=== PATIENT | female | born 1985 | race Caucasian/White ===

== ENCOUNTER 2024-07-12 09:11 | Emergency (ER) | payer BC, SELFPAY ==
[2024-07-12 09:12] VITALS: BP 116/75
[2024-07-12 09:40] VITALS: BP 103/64
[2024-07-12] MEDS: NSS 1000 IV (09:57)
[2024-07-12 09:58] VITALS: BMI 26.7
[2024-07-12 09:59] LABS: % Basophils 0.3 % (0-2); % Immature Granulocytes 0.5 % (0-0.5); % Lymphocytes 1.3 % (20.5-51.1); % Neutrophils 95.9 % (42.2-75.2); Absolute Immature Granulocytes 0.1 10^3/uL (0-0.05); Absolute Lymphocytes 0.2 10^3/uL (1.2-3.4); Absolute Monocytes 0.3 10^3/uL (0.1-0.6); Absolute Neutrophils 12.7 10^3/uL (1.4-6.5); Hematocrit 35.9 % (37.0-47.0); Hemoglobin 11.9 g/dL (12.0-16.0); Mean Corp Hgb Conc. 33.1 g/dL (33.0-37.0); Mean Corpuscular Hgb 29.8 pg (27.0-31.0); Mean Corpuscular Volume 89.8 fL (81.0-99.0); Mean Platelet Volume 8.9 fL (7.4-10.4); Nucleated Red Blood Cells % 0 %; Platelet Count 277 10^3/uL (130-400); White Blood Cell Count 13.3 10^3/uL (4.8-10.8)
[2024-07-12 10:00] VITALS: BP 103/72
[2024-07-12] MEDS: TORADOL 15 MG IV (10:04)
[2024-07-12] MEDS: ZOFRAN 4 MG IV (10:04)
[2024-07-12] MEDS: PEPCID 20 MG IV (10:05)
--- NOTE | 2024-07-12 10:14 | ED.GENMED ---
History of Present Illness
General
Chief Complaint: Abdominal Symptoms
Time Seen by Provider: 07/12/24 09:36
History of Present Illness
History of Present Illness:
TIME OF INITIAL ENCOUNTER: 9:30 AM
HPI: At about 3:30 AM, the patient started having nausea, vomiting, and diarrhea. Her best friend has similar symptoms. She has some associated waves of upper and lower abdominal discomfort associated with vomiting. No fevers.
EXAM:
GENERAL: Well appearing in no distress, appears fairly well-hydrated
HEENT: Moist oral mucosa
CARDIOVASCULAR: No murmurs, normal heart rate, regular rhythm, No chest wall tenderness
PULMONARY: No respiratory distress, breath sounds are clear and equal
ABDOMEN: Soft with no peritoneal signs, minimal if any diffuse abdominal tenderness
NEUROLOGIC: Excellent strength all extremities, no coordination deficits
PSYCHIATRIC: Appropriate mental status, normal insight and judgement
EXTREMITIES: Nontender, no edema, moves all extremities equally
SKIN: No rash, no lesions
NUMBER AND COMPLEXITY OF PROBLEMS ADDRESSED AT THE ENCOUNTER
� Chronic conditions affecting care: No significant past medical history
� Acute Exacerbation and/or Progression of Chronic Illness: This is an acute problem
� Differential Diagnosis includes: Viral syndrome/gastroenteritis, foodborne illness, given associated diarrhea and lack of focal findings, highly doubt appendicitis, dehydration, SABRINA
AMOUNT AND/OR COMPLEXITY OF DATA TO BE REVIEWED AND ANALYZED
� I performed an independent evaluation of and my interpretation is:
EKG:
CT:
X-rays:
Laboratory Studies: White count 13.3, hemoglobin 11.9, bicarb 21, creatinine 0.7
Other:
� Review of other/old records: No old records available for review in [facility]
� Clinical information was obtained by an independent historian: I spoke to the at bedside
� Prescriptions/Medications Considered but not given:
� Further testing considered but not performed: Considered CT imaging however no significant tenderness on examination and symptoms include both vomiting and diarrhea.
RISK OF COMPLICATIONS AND/OR MORBIDITY OR MORTALITY OF PATIENT MANAGEMENT
� Social determinants of health affecting care: Lives at home
� Discussion with other providers:
� Escalation of care including admission/observation vs risk of discharge considered: The patient was initially given IV fluids, Pepcid, Toradol, and Zofran.
ANY OTHER UPDATES:
12:47 PM: I reassessed patient. Overall she feels somewhat improved. She currently appears well-hydrated. Mild leukocytosis noted however no significant abdominal pain and no tenderness on examination. Zofran sent to pharmacy.
Phy Exam
Physical Exam
Physical Exam:
See HPI
Course
Orders/Labs/Results
Orders:
Orders
07/12/24 09:36
0.9% Sodium Chloride 1000 ml [Nss] 1,000 ml IV BOLUS
Test Result ONCE
07/12/24 09:47
Complete Blood Count/With Diff Urgent
Comprehensive Metabolic Panel Urgent
HCG, Serum Qualitative Screen Urgent
07/12/24 09:57
Famotidine [Pepcid] 20 mg IV NOW STA
Ketorolac [Toradol] 15 mg IV NOW STA
Ondansetron Injectable [Zofran] 4 mg IV NOW STA
07/12/24 09:58
0.9% Sodium Chloride 1000 ml [Nss] 1,000 ml IV BOLUS
Abnormal Lab Results
07/12/24
09:47
WBC 13.3 H 10^3/uL
(4.8-10.8)
RBC 4.00 L 10^6/uL
(4.20-5.40)
Hgb 11.9 L g/dL
(12.0-16.0)
Hct 35.9 L %
(37.0-47.0)
Abs Immat Gran (auto) 0.1 H 10^3/uL
(0-0.05)
Absolute Neuts (auto) 12.7 H 10^3/uL
(1.4-6.5)
Absolute Lymphs (auto) 0.2 L 10^3/uL
(1.2-3.4)
Neutrophils % 95.9 H %
(42.2-75.2)
Lymphocytes % 1.3 L %
(20.5-51.1)
Carbon Dioxide 21 L mmol/L
(22-30)
BUN 25 H mg/dl
(7-17)
Glucose 119 H mg/dl
(70-99)
Total Bilirubin 1.4 H mg/dl
(0.2-1.3)
07/12/24 09:47
07/12/24 09:47
Vital Signs
Initial and Last Documented VS:
Initial Vital Signs
Temp Pulse Resp BP Pulse Ox
36.6 C 112 16 116/75 97
07/12/24 09:12 07/12/24 09:12 07/12/24 09:12 07/12/24 09:12 07/12/24 09:12
Last Documented Vital Signs
Temp Pulse Resp BP Pulse Ox
36.6 C 98 18 120/65 98
07/12/24 09:12 07/12/24 11:15 07/12/24 11:15 07/12/24 11:00 07/12/24 11:15
*Critical Care Note
Total Time (30-74mins, 75-104mins- exclusive of procedures): Not Applicable
ED Attending Note
-
Portions of this chart may have been created with voice recognition software.� Occasional wrong word or��sound alike� substitutions may have occurred due to the inherent limitations of voice recognition software.
Discharge Plan
Departure
Referrals:
Jeaneth Waller MD [Family Provider] -
Interventions
Interventions:
*Risk Screen - Suicide Last Done: 07/12/24 10:14
*General Assessment Last Done: 07/12/24 09:58
ED- Fall Risk Assessment Last Done: 07/12/24 09:59
*ED COVID-19 Vaccine History Last Done: 07/12/24 09:58
NS-Aqwjyn-Vdpzwowiqa Assessment Last Done: 07/12/24 10:14
Discharge Date and Time
Print Language: MALTESE
[2024-07-12 10:20] LABS: ALT (SGPT) 19 U/L (0-35); AST (SGOT) 21 U/L (14-36); Albumin 4.6 g/dl (3.5-5.0); Alkaline Phosphatase 47 U/L (38-126); Blood Urea Nitrogen 25 mg/dl (7-17); Calcium 9.1 mg/dl (8.4-10.2); Carbon Dioxide 21 mmol/L (22-30); Chloride 105 mmol/L (98-107); Estimated Creatinine Clearance 102 ml/min; Glucose 119 mg/dl (70-99); Sodium 140 mmol/L (135-145); Total Bilirubin 1.4 mg/dl (0.2-1.3); Total Protein 7.4 g/dl (6.3-8.2); eGFR > 60.00
[2024-07-12 10:28] LABS: HCG, Serum Qualitative Screen Negative
[2024-07-12 11:00] VITALS: BP 120/65
[2024-07-12 12:00] VITALS: BP 120/70
[2024-07-12 13:07] VITALS: BP 122/66
== END 2024-07-12 13:12 | disposition home or self-care (01) ==
LOC: EMR 09:11
PROVIDERS: EMERGENCY PHYSICIAN Emergency Medicine; FAMILY PHYSICIAN Emergency Medicine
DX: R11.2 Nausea with vomiting, unspecified (principal); R19.7 Diarrhea, unspecified; R10.30 Lower abdominal pain, unspecified
CPT/HCPCS: 96374; 96375; 96361; 99284; 80053; 84703; 85025